=== PATIENT | female | born 1990 | race Caucasian/White ===

== ENCOUNTER 2016-12-08 13:03 | Emergency (ER) | payer MEDICAID ==
[~2016-12-08] VITALS: Ht 167.6 cm; Wt 88.5 kg
[2016-12-08 13:05] VITALS: BP_SYST 138
[2016-12-08 14:16] LABS: BASOPHILS # (AUTO) 0.3 K/uL (0.0-0.2); BASOPHILS % (AUTO) 3.1 % (0.0-2.0); EOSINOPHILS # (AUTO) 0.1 K/uL (0.0-0.4); HEMATOCRIT 44.2 % (36-48); HEMOGLOBIN 14.6 g/dL (12.0-16.0); LYMPHOCYTES # (AUTO) 2.2 K/uL (1.0-5.5); LYMPHOCYTES % (AUTO) 24.6 % (20.5-51.5); MEAN CORPUSCULAR HEMOGLOBIN 26 pg (27-31); MEAN CORPUSCULAR HGB CONC 33 % (32-36); MEAN CORPUSCULAR VOLUME 79 fL (79.0-98.0); MONOCYTES # (AUTO) 0.7 K/uL (0.0-1.0); MONOCYTES % (AUTO) 7.4 % (1.7-9.3); NEUTROPHILS # (AUTO) 5.8 K/uL (1.8-7.7); NEUTROPHILS % (AUTO) 63.9 % (40.0-70.0); PLATELET COUNT (AUTO) 399 K/uL (130-430); RED BLOOD CELL COUNT(AUTO) 5.59 MIL/uL (4.2-6.2); RED CELL DISTRIBUTION WIDTH 12.7 % (9.0-15.0); WHITE BLOOD COUNT (AUTO) 9.1 K/uL (4.8-10.8)
[2016-12-08 14:29] LABS: CALCIUM 8.7 mg/dL (8.4-11.0); CREATININE 0.82 mg/dL (0.55-1.30); POTASSIUM 3.8 mmol/L (3.5-5.1)
[2016-12-08 14:31] LABS: PROTHROMBIN TIME 10.3 SECS (9.5-12.5)
[2016-12-08] MEDS ORDERED: NACL 0.9% 1,000 ML IV ONE (15:00)
[2016-12-08] MEDS ORDERED: KETOROLAC TROMETHAMINE 30 MG VIAL IVP ONE (16:00)
[2016-12-08 16:14] LABS: BILIRUBIN,URINE NEGATIVE (NEGATIVE); BLOOD, URINE 3+ (NEGATIVE); CLARITY/URINE CLOUDY (CLEAR); COLOR,URINE RED (YELLOW); GLUCOSE,URINE 3+ (NEGATIVE); KETONES,URINE TRACE (NEGATIVE); NITRITE, URINE NEGATIVE (NEGATIVE); PH,URINE 6.5 (5.0-8.0); PROTEIN URINE 2+ (NEGATIVE); UROBILINOGEN,URINE 0.2 (0.2-1.0)
[2016-12-08 16:17] LABS: LEUKOCYTE ESTERASE ,URINE 2+ (NEGATIVE)
[2016-12-08 16:18] LABS: BACTERIA,URINE FEW /HPF (None Seen); MUCUS,URINE None Seen /LPF (None Seen); RBC,URINE >100 /HPF (0-3); WBC,URINE 20-50 /HPF (0-3)
[2016-12-08] MEDS ORDERED: MORPHINE 4 MG/ML INJ. SYRINGE IVP ONE (16:45)
[2016-12-08 18:54] VITALS: BP_SYST 136
== END 2016-12-08 18:54 | disposition home or self-care (01) ==
LOC: SED 13:03
DX: N93.8 Other specified abnormal uterine and vaginal bleeding (principal); N39.0 Urinary tract infection, site not specified
CPT/HCPCS: 36415; 76830; 76857; 80048; 81000; 81025; 85025; 85610; 85730; 86886; 86900; 86901; 87086; 96361; 96374; 96375; 99285; J1885; J2270; J7030

== ENCOUNTER 2018-04-27 14:17 | Inpatient (IN) | payer MEDICAID ==
[~2018-04-27] VITALS: Ht 167.6 cm; Wt 92.5 kg
[2018-04-27] MEDS ORDERED: NACL 0.9% 1,000 ML IV ONE (14:31)
[2018-04-27 14:40] VITALS: BP_SYST 149
[2018-04-27] MEDS ORDERED: ONDANSETRON HCL 4 MG/2 ML VIAL IVP ONE (14:45)
[2018-04-27] MEDS ORDERED: MORPHINE 4 MG/ML INJ. SYRINGE IVP ONE (14:45)
[2018-04-27 15:27] LABS: CREATININE 0.67 mg/dL (0.55-1.30); POTASSIUM 4.1 mmol/L (3.5-5.1)
[2018-04-27 15:29] LABS: PROTHROMBIN TIME 9.8 SECS (9.5-12.5)
[2018-04-27 15:34] LABS: HEMATOCRIT 36.4 % (36-48); HEMOGLOBIN 11.9 g/dL (12.0-16.0); RED BLOOD CELL COUNT(AUTO) 4.82 MIL/uL (4.2-6.2); WHITE BLOOD COUNT (AUTO) 18.1 K/uL (4.8-10.8)
[2018-04-27 15:35] LABS: EOSINOPHILS % (AUTO) 0.3 % (0.0-4.0); LYMPHOCYTES % (AUTO) 4.3 % (20.5-51.5); MEAN CORPUSCULAR HEMOGLOBIN 25 pg (27-31); MEAN CORPUSCULAR HGB CONC 33 % (32-36); MEAN CORPUSCULAR VOLUME 76 fL (79.0-98.0); MONOCYTES % (AUTO) 4.5 % (1.7-9.3); NEUTROPHILS % (AUTO) 90.5 % (40.0-70.0); PLATELET COUNT (AUTO) 590 K/uL (130-430); RED CELL DISTRIBUTION WIDTH 15.7 % (9.0-15.0)
[2018-04-27 15:36] LABS: BASOPHILS # (AUTO) 0.1 K/uL (0.0-0.2); BASOPHILS % (AUTO) 0.4 % (0.0-2.0); EOSINOPHILS # (AUTO) 0.1 K/uL (0.0-0.4); LYMPHOCYTES # (AUTO) 0.8 K/uL (1.0-5.5); MONOCYTES # (AUTO) 0.8 K/uL (0.0-1.0); NEUTROPHILS # (AUTO) 16.4 K/uL (1.8-7.7)
[2018-04-27 15:39] LABS: TOTAL BILIRUBIN 0.6 mg/dL (0.0-1.0)
[2018-04-27 16:09] LABS: BILIRUBIN,URINE NEGATIVE (NEGATIVE); BLOOD, URINE 3+ (NEGATIVE); CLARITY/URINE CLEAR (CLEAR); COLOR,URINE YELLOW (YELLOW); GLUCOSE,URINE NEGATIVE (NEGATIVE); KETONES,URINE NEGATIVE (NEGATIVE); LEUKOCYTE ESTERASE ,URINE 3+ (NEGATIVE); NITRITE, URINE POSITIVE (NEGATIVE); PROTEIN URINE 1+ (NEGATIVE); UROBILINOGEN,URINE 0.2 (0.2-1.0)
[2018-04-27] MEDS ORDERED: cefTRIAXone 1 GM IVPB PREMIX 50 ML IV ONE (16:15)
[2018-04-27 16:23] LABS: RBC,URINE >100 /HPF (0-3)
[2018-04-27 16:24] LABS: BACTERIA,URINE MODERATE /HPF (None Seen); WBC,URINE >100 /HPF (0-3)
[2018-04-27] MEDS ORDERED: NACL 0.9% 3,000 ML IV ONE (16:45)
[2018-04-27] MEDS ORDERED: ACETAMINOPHEN 500 MG TABLET PO ONE (16:45)
[2018-04-27 19:18] VITALS: BP_SYST 127
[2018-04-27] MEDS ORDERED: PIPERACILLIN/TAZOBACTAM 4.5 GM/VIAL (ZOSYN) IV ONE (20:40)
[2018-04-27] MEDS: PIPERACILLIN/TAZO 4.5GM/DEX-IS 100 ML IV SCH (22:00)
[2018-04-27] MEDS: NACL 0.9% 1,000 ML IV SCH (23:46)
[2018-04-28 00:48] VITALS: BP_SYST 124
[2018-04-28] MEDS: PIPERACILLIN/TAZO 4.5GM/DEX-IS 100 ML IV SCH ×2 (05:22→14:02)
[2018-04-28 08:03] VITALS: BP_SYST 123
[2018-04-28] MEDS: NACL 0.9% 1,000 ML IV SCH ×3 (08:18→23:58)
[2018-04-28] MEDS: ACETAMINOPHEN 325 MG TABLET PO PRN ×2 (09:06→20:37)
[2018-04-28 11:25] VITALS: BP_SYST 115
[2018-04-28 15:31] VITALS: BP_SYST 126
[2018-04-28] MEDS ORDERED: VANCOMYCIN HCL 1,000 MG in NS 250 ML IV SCH (16:00)
[2018-04-28] MEDS: AMPICILLIN SODIUM/SULBACTAM NA 3 GM in NS 100 ML IV SCH ×2 (17:29→23:57)
[2018-04-28 20:00] VITALS: BP_SYST 129
[2018-04-29 00:39] VITALS: BP_SYST 118
[2018-04-29] MEDS: AMPICILLIN SODIUM/SULBACTAM NA 3 GM in NS 100 ML IV SCH ×4 (05:26→23:30)
[2018-04-29 07:40] VITALS: BP_SYST 155
[2018-04-29 07:40] LABS: ALBUMIN 2.4 g/dL (3.4-4.8); CALCIUM 8.4 mg/dL (8.4-11.0); CREATININE 0.65 mg/dL (0.55-1.30); POTASSIUM 3.5 mmol/L (3.5-5.1); TOTAL BILIRUBIN 0.4 mg/dL (0.0-1.0)
[2018-04-29 08:06] LABS: HEMATOCRIT 35.4 % (36-48); HEMOGLOBIN 11.4 g/dL (12.0-16.0); RED BLOOD CELL COUNT(AUTO) 4.66 MIL/uL (4.2-6.2); WHITE BLOOD COUNT (AUTO) 7.2 K/uL (4.8-10.8)
[2018-04-29 08:07] LABS: BASOPHILS % (AUTO) 0.8 % (0.0-2.0); EOSINOPHILS % (AUTO) 1.3 % (0.0-4.0); LYMPHOCYTES # (AUTO) 1.9 K/uL (1.0-5.5); LYMPHOCYTES % (AUTO) 25.7 % (20.5-51.5); MEAN CORPUSCULAR HEMOGLOBIN 25 pg (27-31); MEAN CORPUSCULAR HGB CONC 32 % (32-36); MEAN CORPUSCULAR VOLUME 76 fL (79.0-98.0); MONOCYTES # (AUTO) 0.7 K/uL (0.0-1.0); MONOCYTES % (AUTO) 9.9 % (1.7-9.3); NEUTROPHILS # (AUTO) 4.5 K/uL (1.8-7.7); NEUTROPHILS % (AUTO) 62.3 % (40.0-70.0); PLATELET COUNT (AUTO) 493 K/uL (130-430); RED CELL DISTRIBUTION WIDTH 15.8 % (9.0-15.0)
[2018-04-29 08:08] LABS: BASOPHILS # (AUTO) 0.1 K/uL (0.0-0.2); EOSINOPHILS # (AUTO) 0.1 K/uL (0.0-0.4)
[2018-04-29] MEDS: NACL 0.9% 1,000 ML IV SCH (11:05)
[2018-04-29 11:30] VITALS: BP_SYST 128
[2018-04-29 15:37] VITALS: BP_SYST 142
[2018-04-29 19:55] VITALS: BP_SYST 147
[2018-04-30] VITALS: BP_SYST 151
[2018-04-30] MEDS: AMPICILLIN SODIUM/SULBACTAM NA 3 GM in NS 100 ML IV SCH ×2 (06:06→12:03)
[2018-04-30 08:00] VITALS: BP_SYST 155
[2018-04-30 12:39] VITALS: BP_SYST 144
[2018-04-30 16:40] VITALS: BP_SYST 137
[2018-04-30] MEDS ORDERED: AMOX-426 PO (17:06)
[2018-04-30] MEDS ORDERED: LACT1CAP62 PO (17:07)
[2018-04-30 17:13] VITALS: BP_SYST 137
== END 2018-04-30 17:45 | disposition home or self-care (01) | DRG 561 ==
LOC: SED 14:17 → STU 18:20 → SMU 04-28 09:54
PROVIDERS: ADMIT Internal Medicine; ATTEND Internal Medicine
DX: O85 Puerperal sepsis (principal); E44.0 Moderate protein-calorie malnutrition; O72.1 Other immediate postpartum hemorrhage; E66.9 Obesity, unspecified; O99.285 Endocrine, nutritional and metabolic diseases complicating the puerperium; E28.2 Polycystic ovarian syndrome; O90.81 Anemia of the puerperium; D64.9 Anemia, unspecified; O99.215 Obesity complicating the puerperium; O25.3 Malnutrition in the puerperium
CPT/HCPCS: 36415; 76700-TC; 76856-TC; 80053; 81000-TC; 82150-TC; 83605; 83690-TC; 84702-TC; 85025; 85610-TC; 85730-TC; 87040-TC; 87081; 87086; 87186-TC; 87210-TC; 93005; 96365; 96375; 99285; G0378; J0295; J0696; J2270; J2405; J2543; J3370; J7030; J7050

== ENCOUNTER 2018-08-19 13:31 | Emergency (ER) | payer MEDICAID ==
[~2018-08-19] VITALS: Ht 167.6 cm; Wt 86.2 kg
[~2018-08-19 13:31] MED LIST: AMOX-426 PO; LACT1CAP62 PO
[2018-08-19 13:35] VITALS: BP_SYST 156
--- NOTE | 2018-08-19 13:39 | NUR ---
Patient to ER bed 6 to gown for evaluation. Side rails up. Report given to Sarah LAMBERT.
--- NOTE | 2018-08-19 13:42 | NUR ---
Pt brought by self, A&Ox4, pt presents to ER with lower abdominal cramping , pt states she did a recent test and it was positive, pt denies N/V/D , denies vaginal bleeding , ambulatory.
--- NOTE | 2018-08-19 13:50 | NUR ---
ER at bedside examining patient.
[2018-08-19 14:19] LABS: BASOPHILS % (AUTO) 0.2 % (0.0-2.0); EOSINOPHILS # (AUTO) 0.1 K/uL (0.0-0.4); HEMATOCRIT 37.8 % (36-48); HEMOGLOBIN 12.2 g/dL (12.0-16.0); LYMPHOCYTES # (AUTO) 2.3 K/uL (1.0-5.5); LYMPHOCYTES % (AUTO) 23.9 % (20.5-51.5); MEAN CORPUSCULAR HEMOGLOBIN 24 pg (27-31); MEAN CORPUSCULAR HGB CONC 32 % (32-36); MEAN CORPUSCULAR VOLUME 74 fL (79.0-98.0); MONOCYTES # (AUTO) 0.8 K/uL (0.0-1.0); MONOCYTES % (AUTO) 8.4 % (1.7-9.3); NEUTROPHILS # (AUTO) 6.5 K/uL (1.8-7.7); NEUTROPHILS % (AUTO) 66.5 % (40.0-70.0); PLATELET COUNT (AUTO) 410 K/uL (130-430); RED BLOOD CELL COUNT(AUTO) 5.09 MIL/uL (4.2-6.2); RED CELL DISTRIBUTION WIDTH 17.1 % (9.0-15.0); WHITE BLOOD COUNT (AUTO) 9.8 K/uL (4.8-10.8)
--- NOTE | 2018-08-19 14:30 | NUR ---
Patient transported to radiology via WC, accompanied by RAD STAFF.
--- NOTE | 2018-08-19 14:55 | NUR ---
Returned from radiology, back to [facility].
[2018-08-19 15:20] VITALS: BP_SYST 148
--- NOTE | 2018-08-19 15:20 | NUR ---
Patient given written and verbal discharge instructions and verbalizes understanding. ER MD discussed with patient the results and treatment provided. Patient in stable condition. ID arm band removed. Rx of VITAMINS given. Patient educated on pain management and to follow up with PMD. Pain Scale 0. Opportunity for questions provided and answered. Medication side effect fact sheet provided.
== END 2018-08-19 15:20 | disposition home or self-care (01) ==
LOC: SED 13:31
DX: O26.891 Other specified pregnancy related conditions, first trimester (principal); R10.2 Pelvic and perineal pain; R03.0 Elevated blood-pressure reading, without diagnosis of hypertension; Z79.899 Other long term (current) drug therapy; Z3A.01 Less than 8 weeks gestation of pregnancy
CPT/HCPCS: 36415; 76801; 76817; 81002; 81025; 84702-TC; 85025; 99284

== ENCOUNTER 2018-09-03 16:21 | Emergency (ER) | payer MEDICAID ==
[~2018-09-03] VITALS: Ht 167.6 cm; Wt 86.2 kg
[2018-09-03 16:30] VITALS: BP_SYST 139
[2018-09-03 16:45] VITALS: BP_SYST 139
== END 2018-09-03 16:45 | disposition home or self-care (01) ==
LOC: SED 16:21
DX: T20.15XA Burn of first degree of scalp [any part], initial encounter (principal); T22.10XA Burn of first degree of shoulder and upper limb, except wrist and hand, unspecified site, initial encounter; T21.10XA Burn of first degree of trunk, unspecified site, initial encounter; T31.0 Burns involving less than 10% of body surface; L55.0 Sunburn of first degree; Z79.899 Other long term (current) drug therapy; X58.XXXA Exposure to other specified factors, initial encounter; Y93.89 Activity, other specified; Y92.89 Other specified places as the place of occurrence of the external cause; Y99.8 Other external cause status
CPT/HCPCS: 99283

== ENCOUNTER 2018-10-01 19:28 | Emergency (ER) | payer MEDICAID ==
[~2018-10-01] VITALS: Ht 167.6 cm; Wt 86.2 kg
[2018-10-01 19:39] VITALS: BP_SYST 123
--- NOTE | 2018-10-01 19:45 | NUR ---
Patient triaged and placed in waiting room. VSS and patient appears in no acute distress at this time. Accompanied by self, awaiting available bed, and MD notified of need for MSE.
--- NOTE | 2018-10-01 19:51 | NUR ---
Patient to ER bed 02 to gown for evaluation. Side rails up. Report given to Arcadio LAMBERT.
--- NOTE | 2018-10-01 19:51 | NUR ---
Pt 10 weeks 5 days , , AAOx4 ambulated into ED c/o vaginal spotting, white discharge, and dysuria starting today. Denies N/V/D/SOB/CP/abd pain. No other injuries/complaints per pt/noted. Will continue to monitor.
--- NOTE | 2018-10-01 20:05 | NUR ---
ER Dr. Infante at bedside examining patient.
[2018-10-01 20:19] LABS: BILIRUBIN,URINE NEGATIVE (NEGATIVE); BLOOD, URINE NEGATIVE (NEGATIVE); CLARITY/URINE CLEAR (CLEAR); COLOR,URINE YELLOW (YELLOW); GLUCOSE,URINE NEGATIVE (NEGATIVE); KETONES,URINE NEGATIVE (NEGATIVE); LEUKOCYTE ESTERASE ,URINE 1+ (NEGATIVE); NITRITE, URINE NEGATIVE (NEGATIVE); PROTEIN URINE NEGATIVE (NEGATIVE); UROBILINOGEN,URINE 0.2 (0.2-1.0)
[2018-10-01 20:49] LABS: BACTERIA,URINE RARE /HPF (None Seen); MUCUS,URINE 2+ /LPF (None Seen); RBC,URINE 0-3 /HPF (0-3)
[2018-10-01 21:02] LABS: BASOPHILS # (AUTO) 0.1 K/uL (0.0-0.2); BASOPHILS % (AUTO) 0.8 % (0.0-2.0); EOSINOPHILS # (AUTO) 0.1 K/uL (0.0-0.4); EOSINOPHILS % (AUTO) 0.9 % (0.0-4.0); HEMOGLOBIN 12.6 g/dL (12.0-16.0); LYMPHOCYTES # (AUTO) 3.1 K/uL (1.0-5.5); LYMPHOCYTES % (AUTO) 27.5 % (20.5-51.5); MEAN CORPUSCULAR HEMOGLOBIN 24 pg (27-31); MEAN CORPUSCULAR HGB CONC 32 % (32-36); MEAN CORPUSCULAR VOLUME 75 fL (79.0-98.0); MONOCYTES # (AUTO) 0.7 K/uL (0.0-1.0); MONOCYTES % (AUTO) 6.4 % (1.7-9.3); NEUTROPHILS # (AUTO) 7.4 K/uL (1.8-7.7); NEUTROPHILS % (AUTO) 64.4 % (40.0-70.0); PLATELET COUNT (AUTO) 419 K/uL (130-430); RED CELL DISTRIBUTION WIDTH 16.4 % (9.0-15.0); WHITE BLOOD COUNT (AUTO) 11.4 K/uL (4.8-10.8)
[2018-10-01 21:23] LABS: CALCIUM 9.7 mg/dL (8.4-11.0); CREATININE 0.52 mg/dL (0.55-1.30)
[2018-10-01 21:49] LABS: ALBUMIN 3.4 g/dL (3.4-4.8); TOTAL BILIRUBIN 0.2 mg/dL (0.0-1.0)
[2018-10-01 22:17] VITALS: BP_SYST 117
--- NOTE | 2018-10-01 22:17 | NUR ---
Patient given written and verbal discharge instructions and verbalizes understanding. ER MD discussed with patient the results and treatment provided. Patient in stable condition. ID arm band removed. Rx of Macrobid given. Patient educated on pain management and to follow up with PMD. Pain Scale 0. Opportunity for questions provided and answered. Medication side effect fact sheet provided.
== END 2018-10-01 22:17 | disposition home or self-care (01) ==
LOC: SED 19:28
DX: O20.0 Threatened abortion (principal); Z79.899 Other long term (current) drug therapy; Z3A.10 10 weeks gestation of pregnancy
CPT/HCPCS: 36415; 76805-TC; 80053; 81000-TC; 84702-TC; 85025; 86900; 86901; 87086; 99284

== ENCOUNTER 2019-04-23 07:55 | Emergency (ER) | payer MEDICAID ==
[~2019-04-23] VITALS: Ht 167.6 cm; Wt 94.3 kg
[2019-04-23 08:04] VITALS: BP_SYST 160
[2019-04-23] MEDS ORDERED: KETOROLAC TROMETHAMINE 60 MG/2 ML VIAL IM ONE (08:30)
[2019-04-23 08:43] LABS: BILIRUBIN,URINE NEGATIVE (NEGATIVE); BLOOD, URINE 3+ (NEGATIVE); CLARITY/URINE SL CLOUDY (CLEAR); COLOR,URINE YELLOW (YELLOW); GLUCOSE,URINE NEGATIVE (NEGATIVE); KETONES,URINE NEGATIVE (NEGATIVE); LEUKOCYTE ESTERASE ,URINE 1+ (NEGATIVE); NITRITE, URINE NEGATIVE (NEGATIVE); PROTEIN URINE TRACE (NEGATIVE); UROBILINOGEN,URINE 0.2 (0.2-1.0)
[2019-04-23 08:50] LABS: BASOPHILS # (AUTO) 0.1 K/uL (0.0-0.2); BASOPHILS % (AUTO) 0.7 % (0.0-2.0); EOSINOPHILS # (AUTO) 0.1 K/uL (0.0-0.4); EOSINOPHILS % (AUTO) 0.6 % (0.0-4.0); HEMATOCRIT 35.9 % (36-48); HEMOGLOBIN 11.6 g/dL (12.0-16.0); LYMPHOCYTES # (AUTO) 1.5 K/uL (1.0-5.5); LYMPHOCYTES % (AUTO) 13.1 % (20.5-51.5); MEAN CORPUSCULAR HEMOGLOBIN 24 pg (27-31); MEAN CORPUSCULAR HGB CONC 32 % (32-36); MEAN CORPUSCULAR VOLUME 73 fL (79.0-98.0); MONOCYTES # (AUTO) 0.7 K/uL (0.0-1.0); MONOCYTES % (AUTO) 5.8 % (1.7-9.3); NEUTROPHILS # (AUTO) 9.1 K/uL (1.8-7.7); NEUTROPHILS % (AUTO) 79.8 % (40.0-70.0); PLATELET COUNT (AUTO) 526 K/uL (130-430); RED BLOOD CELL COUNT(AUTO) 4.92 MIL/uL (4.2-6.2); RED CELL DISTRIBUTION WIDTH 16.7 % (9.0-15.0); WHITE BLOOD COUNT (AUTO) 11.4 K/uL (4.8-10.8)
[2019-04-23 08:59] LABS: BACTERIA,URINE FEW /HPF (None Seen); RBC,URINE 20-50 /HPF (0-3)
[2019-04-23 09:03] LABS: CALCIUM 8.7 mg/dL (8.4-11.0); CREATININE 0.76 mg/dL (0.55-1.30); POTASSIUM 4.2 mmol/L (3.5-5.1)
[2019-04-23 09:09] LABS: ALBUMIN 2.9 g/dL (3.4-4.8); TOTAL BILIRUBIN 0.5 mg/dL (0.0-1.0)
[2019-04-23] MEDS ORDERED: traMADol HCL HCL 50 MG TABLET (ULTRAM) PO ONE (11:00)
[2019-04-23 11:50] VITALS: BP_SYST 122
== END 2019-04-23 11:50 | disposition home or self-care (01) ==
LOC: SED 07:55
DX: N83.02 Follicular cyst of left ovary (principal); N39.0 Urinary tract infection, site not specified
CPT/HCPCS: 36415; 76856; 80053; 81000; 85025; 87086; 96372; 99284; J1885

== ENCOUNTER 2020-05-23 22:45 | Observation (INO) | payer MEDICAID ==
[~2020-05-23] VITALS: Ht 167.6 cm; Wt 97.5 kg
[2020-05-24] MEDS ORDERED: ACETAMINOPHEN 325 MG TABLET PO PRN (00:15)
[2020-05-24] MEDS ORDERED: ACETAMINOPHEN 325 MG TABLET ONE (00:17)
== END 2020-05-24 00:50 | disposition home or self-care (01) ==
LOC: SPU 22:45
PROVIDERS: ADMIT Obstetrics & Gynecology; ATTEND Obstetrics & Gynecology
DX: O26.892 Other specified pregnancy related conditions, second trimester (principal); R10.30 Lower abdominal pain, unspecified; Z3A.21 21 weeks gestation of pregnancy
CPT/HCPCS: 81002; G0378

== ENCOUNTER 2020-06-10 22:37 | Observation (INO) | payer MEDICAID | END 2020-06-10 23:55 | disposition home or self-care (01) | LOC: INTOOBSV 22:37 → SPU 22:37 | PROVIDERS: ADMIT Obstetrics & Gynecology; ATTEND Obstetrics & Gynecology | DX: O24.414 Gestational diabetes mellitus in pregnancy, insulin controlled (principal); O34.62 Maternal care for abnormality of vagina, second trimester; N89.8 Other specified noninflammatory disorders of vagina; Z3A.24 24 weeks gestation of pregnancy; Z79.4 Long term (current) use of insulin | CPT/HCPCS: G0378 ==

== ENCOUNTER 2020-06-28 18:33 | Emergency (ER) | payer MEDICAID ==
[~2020-06-28] VITALS: Ht 167.6 cm; Wt 98.4 kg
[2020-06-28 18:45] VITALS: BP_SYST 132
[2020-06-28] MEDS ORDERED: NACL 0.9% 1,000 ML IV ONE (19:30)
[2020-06-28 19:49] LABS: BASOPHILS # (AUTO) 0.4 K/uL (0.0-0.2); BASOPHILS % (AUTO) 2.8 % (0.0-2.0); EOSINOPHILS # (AUTO) 0.2 K/uL (0.0-0.4); EOSINOPHILS % (AUTO) 1.4 % (0.0-4.0); HEMATOCRIT 35.8 % (36-48); HEMOGLOBIN 12.1 g/dL (12.0-16.0); LYMPHOCYTES # (AUTO) 1.4 K/uL (1.0-5.5); LYMPHOCYTES % (AUTO) 11.2 % (20.5-51.5); MEAN CORPUSCULAR HEMOGLOBIN 25 pg (27-31); MEAN CORPUSCULAR HGB CONC 34 % (32-36); MEAN CORPUSCULAR VOLUME 76 fL (79.0-98.0); MONOCYTES # (AUTO) 0.9 K/uL (0.0-1.0); MONOCYTES % (AUTO) 6.9 % (1.7-9.3); NEUTROPHILS # (AUTO) 9.9 K/uL (1.8-7.7); NEUTROPHILS % (AUTO) 77.7 % (40.0-70.0); PLATELET COUNT (AUTO) 399 K/uL (130-430); RED BLOOD CELL COUNT(AUTO) 4.75 MIL/uL (4.2-6.2); WHITE BLOOD COUNT (AUTO) 12.7 K/uL (4.8-10.8)
[2020-06-28 20:04] LABS: CREATININE 0.69 mg/dL (0.55-1.30); POTASSIUM 3.7 mmol/L (3.5-5.1)
[2020-06-28 20:05] LABS: BILIRUBIN,URINE NEGATIVE (NEGATIVE); BLOOD, URINE NEGATIVE (NEGATIVE); CLARITY/URINE CLEAR (CLEAR); GLUCOSE,URINE NEGATIVE (NEGATIVE); KETONES,URINE NEGATIVE (NEGATIVE); LEUKOCYTE ESTERASE ,URINE NEGATIVE (NEGATIVE); NITRITE, URINE NEGATIVE (NEGATIVE); PH,URINE 6.5 (5.0-8.0); PROTEIN URINE NEGATIVE (NEGATIVE); UROBILINOGEN,URINE 0.2 (0.2-1.0)
[2020-06-28 20:09] LABS: ALBUMIN 2.9 g/dL (3.4-4.8); PHOSPHORUS 3.9 mg/dL (2.7-4.5)
[2020-06-28 20:13] LABS: COLOR,URINE STRAW (YELLOW)
[2020-06-28 20:22] LABS: CALCIUM 8.7 mg/dL (8.4-11.0); TOTAL BILIRUBIN 0.3 mg/dL (0.0-1.0)
[2020-06-28 21:06] VITALS: BP_SYST 121
== END 2020-06-28 21:06 | disposition home or self-care (01) ==
LOC: SED 18:33
DX: O26.892 Other specified pregnancy related conditions, second trimester (principal); R25.2 Cramp and spasm; I10 Essential (primary) hypertension; E11.9 Type 2 diabetes mellitus without complications; Z3A.26 26 weeks gestation of pregnancy
CPT/HCPCS: 36415; 80053; 81003; 83735; 84100; 85025; 96360; 99284; J7030

== ENCOUNTER 2020-09-01 21:45 | Observation (INO) | payer MEDICAID | END 2020-09-02 00:10 | disposition home or self-care (01) | LOC: SPU 21:55 | PROVIDERS: ADMIT Obstetrics & Gynecology; ATTEND Obstetrics & Gynecology | DX: O26.893 Other specified pregnancy related conditions, third trimester (principal); R55 Syncope and collapse; R42 Dizziness and giddiness; Z3A.36 36 weeks gestation of pregnancy | CPT/HCPCS: 82962; G0378 ==

== ENCOUNTER 2020-09-16 22:13 | Observation (INO) | payer MEDICAID | END 2020-09-16 23:48 | disposition home or self-care (01) | LOC: SPU 22:13 | PROVIDERS: ADMIT Obstetrics & Gynecology; ATTEND Obstetrics & Gynecology | DX: O62.9 Abnormality of forces of labor, unspecified (principal); Z3A.38 38 weeks gestation of pregnancy; Z79.899 Other long term (current) drug therapy | CPT/HCPCS: 59025; 81002; 82962; G0378 ==

== ENCOUNTER 2020-09-17 23:10 | Observation (INO) | payer MEDICAID ==
[~2020-09-17] VITALS: Ht 167.6 cm; Wt 101.6 kg
== END 2020-09-18 01:35 | disposition home or self-care (01) ==
LOC: SPU 23:10
PROVIDERS: ADMIT Obstetrics & Gynecology; ATTEND Obstetrics & Gynecology
DX: O62.9 Abnormality of forces of labor, unspecified (principal); Z3A.38 38 weeks gestation of pregnancy
CPT/HCPCS: 81002; 82962; G0378 ×2

== ENCOUNTER 2020-09-20 09:16 | Inpatient (IN) | payer MEDICAID, SELFPAY ==
[~2020-09-20] VITALS: Ht 167.6 cm; Wt 101.6 kg
[2020-09-20] MEDS ORDERED: AMPICILLIN SODIUM 2 GM in NS 100 ML IV ONE (10:45)
[2020-09-20] MEDS ORDERED: LR 1,000 ML IV SCH (10:45)
[2020-09-20] MEDS ORDERED: TERBUTALINE SULFATE 1 MG/ML VIAL SUBCUT ONE (10:45)
[2020-09-20] MEDS ORDERED: OXYTOCIN/0.9 % SODIUM CHLORIDE 1,000 ML IV SCH (10:45)
[2020-09-20] MEDS ORDERED: DINOPROSTONE 10 MG SUPP VG ONE (10:45)
[2020-09-20] MEDS ORDERED: NALBUPHINE HCL 10 MG/ML AMP IVP PRN (10:45)
[2020-09-20] MEDS ORDERED: AMPICILLIN SODIUM 2 GM VIAL ONE (10:52)
[2020-09-20 11:14] LABS: BASOPHILS # (AUTO) 0.1 K/uL (0.0-0.2); BASOPHILS % (AUTO) 0.9 % (0.0-2.0); EOSINOPHILS # (AUTO) 0.1 K/uL (0.0-0.4); EOSINOPHILS % (AUTO) 0.8 % (0.0-4.0); HEMATOCRIT 35.6 % (36-48); LYMPHOCYTES # (AUTO) 2.3 K/uL (1.0-5.5); LYMPHOCYTES % (AUTO) 21.9 % (20.5-51.5); MEAN CORPUSCULAR HEMOGLOBIN 25 pg (27-31); MEAN CORPUSCULAR HGB CONC 34 % (32-36); MEAN CORPUSCULAR VOLUME 75 fL (79.0-98.0); MONOCYTES # (AUTO) 0.7 K/uL (0.0-1.0); MONOCYTES % (AUTO) 7.1 % (1.7-9.3); NEUTROPHILS # (AUTO) 7.3 K/uL (1.8-7.7); NEUTROPHILS % (AUTO) 69.3 % (40.0-70.0); PLATELET COUNT (AUTO) 312 K/uL (130-430); RED BLOOD CELL COUNT(AUTO) 4.78 MIL/uL (4.2-6.2); RED CELL DISTRIBUTION WIDTH 15.7 % (9.0-15.0); WHITE BLOOD COUNT (AUTO) 10.5 K/uL (4.8-10.8)
[2020-09-20 12:14] VITALS: BP_SYST 133
[2020-09-20] MEDS ORDERED: ROPIVACAINE HCL/PF 0.2% 200 ML ONE (13:38)
[2020-09-20] MEDS ORDERED: fentaNYL CITRATE/PF 100 MCG/2 ML AMP ONE (13:38)
[2020-09-20] MEDS ORDERED: FENT2mCg/mL-ROPIVA0.2%/NS EPID 200 ML EP SCH (13:38)
[2020-09-20] MEDS: AMPICILLIN SODIUM 1 GM in NS 50 ML IV SCH ×3 (14:42→22:45)
[2020-09-20] MEDS ORDERED: D5LR 1,000 ML IV SCH (15:45)
[2020-09-21] MEDS ORDERED: ANUSOL 1 EA SUPP.RECT (PREPARATION H) RC PRN (03:00)
[2020-09-21] MEDS ORDERED: OXYCODONE/ACETAMINOPHEN 5-325 TABLET PO PRN ×2 (03:00)
[2020-09-21] MEDS ORDERED: WITCH HAZEL LEAF 1 MED.PAD MED.PAD TP PRN (03:00)
[2020-09-21] MEDS ORDERED: DERMOPLAST SPRAY TP PRN (03:00)
[2020-09-21] MEDS ORDERED: LANOLIN 7 GM OINT. TP PRN (03:00)
[2020-09-21] MEDS ORDERED: OXYTOCIN/0.9 % SODIUM CHLORIDE 1,000 ML IV SCH (03:00)
[2020-09-21] MEDS ORDERED: HYDROCORTISONE 0.5% CREAM 28.4 GM CREAM.GM. TP PRN (03:00)
[2020-09-21] MEDS ORDERED: OXYTOCIN/0.9 % SODIUM CHLORIDE 1,000 ML IV ONE (03:00)
[2020-09-21] MEDS: IBUPROFEN 800 MG TABLET PO PRN ×3 (07:17→18:24)
[2020-09-21] MEDS: DOCUSATE SODIUM 100 MG CAPSULE PO SCH (12:43)
[2020-09-21] MEDS ORDERED: FENT2mCg/mL-ROPIVA0.2%/NS EPID 150 ML EP SCH (17:00)
[2020-09-21] MEDS ORDERED: TEMAZEPAM 15 MG CAPSULE PO PRN (21:00)
[2020-09-21] MEDS ORDERED: SENNOSIDES/DOCUSATE SODIUM 1 TAB TABLET(SENOKOT-S) PO SCH (21:00)
[2020-09-22] MEDS: IBUPROFEN 800 MG TABLET PO PRN ×2 (00:03→11:45)
[2020-09-22 07:11] LABS: BASOPHILS # (AUTO) 0.1 K/uL (0.0-0.2); BASOPHILS % (AUTO) 0.6 % (0.0-2.0); EOSINOPHILS # (AUTO) 0.2 K/uL (0.0-0.4); EOSINOPHILS % (AUTO) 1.6 % (0.0-4.0); HEMATOCRIT 27.7 % (36-48); HEMOGLOBIN 9.3 g/dL (12.0-16.0); LYMPHOCYTES # (AUTO) 3.7 K/uL (1.0-5.5); LYMPHOCYTES % (AUTO) 32.4 % (20.5-51.5); MEAN CORPUSCULAR HEMOGLOBIN 25 pg (27-31); MEAN CORPUSCULAR HGB CONC 33 % (32-36); MEAN CORPUSCULAR VOLUME 75 fL (79.0-98.0); MONOCYTES # (AUTO) 0.9 K/uL (0.0-1.0); MONOCYTES % (AUTO) 8.1 % (1.7-9.3); NEUTROPHILS # (AUTO) 6.5 K/uL (1.8-7.7); NEUTROPHILS % (AUTO) 57.3 % (40.0-70.0); PLATELET COUNT (AUTO) 292 K/uL (130-430); RED CELL DISTRIBUTION WIDTH 15.6 % (9.0-15.0); WHITE BLOOD COUNT (AUTO) 11.3 K/uL (4.8-10.8)
[2020-09-22] MEDS: DOCUSATE SODIUM 100 MG CAPSULE PO SCH (10:38)
[2020-09-22] MEDS ORDERED: DOCUSATE SODIUM 100 MG CAPSULE PO ONE (10:41)
== END 2020-09-22 15:50 | disposition home or self-care (01) | DRG 560 ==
LOC: SPU 09:16
PROVIDERS: ADMIT Obstetrics & Gynecology; ATTEND Obstetrics & Gynecology
PROC: 10E0XZZ Delivery of Products of Conception, External Approach (ICD-10-PCS; principal; 2020-09-21)
PROC: 3E0R3BZ Introduction of Anesthetic Agent into Spinal Canal, Percutaneous Approach (ICD-10-PCS; 2020-09-21)
PROC: 00HU33Z Insertion of Infusion Device into Spinal Canal, Percutaneous Approach (ICD-10-PCS; 2020-09-21)
DX: O24.12 Pre-existing type 2 diabetes mellitus, in childbirth (principal); Z37.0 Single live birth; O10.92 Unspecified pre-existing hypertension complicating childbirth; E11.9 Type 2 diabetes mellitus without complications; Z20.822 Contact with and (suspected) exposure to COVID-19; Z3A.38 38 weeks gestation of pregnancy
CPT/HCPCS: 36415; 82947; 82962; 85025; 86592; 86886; 86900; 86901; 94760; J0290; J2590; J3010

== ENCOUNTER → 2020-09-30 | Emergency (ER) | payer MEDICAID, SELFPAY ==
--- NOTE | 2020-10-01 01:16 | NUR ---
Patient left without being seen.
== END | disposition left against medical advice (07) ==
LOC: SED 17:41
DX: R42 Dizziness and giddiness (principal); Z53.21 Procedure and treatment not carried out due to patient leaving prior to being seen by health care provider

== ENCOUNTER 2021-08-02 22:34 | Emergency (ER) | payer MEDICAID ==
[~2021-08-02] VITALS: Ht 167.6 cm; Wt 95.3 kg
[2021-08-02 22:50] VITALS: BP_SYST 142
--- NOTE | 2021-08-02 22:50 | NUR ---
Patient triaged and placed in waiting room. VSS and patient appears in no acute distress at this time. Accompanied by FAM MEMBER, awaiting available bed, and MD notified of need for MSE.
--- NOTE | 2021-08-02 23:55 | NUR ---
Patient to ER bed 7 to gown for evaluation. Side rails up. Report given to GINGER LAMBERT.
--- NOTE | 2021-08-03 00:28 | NUR ---
PT PRESENTED TO ER WITH COMPLAINT OF DIZENESS FOR THE PAST 3 DAYS, PT STATES SHE EXPERIENCES NAUSEA IMMEDIETLY AFTER EATING. DENIES ANY CHEST, HEAD OR ABDOMINAL PAIN. PT DOES HAVE COMPLAINT OF PAIN ON 5/10 OF RIGHT ARM. PT DOES STATE THAT SHE DOES HAVE A HISTORY OF VERTIGO, BUT STATES THAT THE FEELING SHE IS EXPERIENCING IS DIFFERENT THAN VERTIGO. LAST VERTIGO EPISODE WAS 4+YRS AGO
--- NOTE | 2021-08-03 00:29 | NUR ---
ULTRASOUND AT PT BEDSIDE
[2021-08-03 00:37] LABS: BASOPHILS # (AUTO) 0.1 K/uL (0.0-0.2); BASOPHILS % (AUTO) 0.8 % (0.0-2.0); EOSINOPHILS # (AUTO) 0.1 K/uL (0.0-0.4); EOSINOPHILS % (AUTO) 0.6 % (0.0-4.0); HEMATOCRIT 37.2 % (36-48); HEMOGLOBIN 12.6 g/dL (12.0-16.0); LYMPHOCYTES # (AUTO) 2.1 K/uL (1.0-5.5); LYMPHOCYTES % (AUTO) 22.8 % (20.5-51.5); MEAN CORPUSCULAR HEMOGLOBIN 26 pg (27-31); MEAN CORPUSCULAR HGB CONC 34 % (32-36); MEAN CORPUSCULAR VOLUME 76 fL (79.0-98.0); MONOCYTES # (AUTO) 0.5 K/uL (0.0-1.0); MONOCYTES % (AUTO) 5.7 % (1.7-9.3); NEUTROPHILS # (AUTO) 6.5 K/uL (1.8-7.7); NEUTROPHILS % (AUTO) 70.1 % (40.0-70.0); PLATELET COUNT (AUTO) 343 K/uL (130-430); RED CELL DISTRIBUTION WIDTH 13.4 % (9.0-15.0); WHITE BLOOD COUNT (AUTO) 9.3 K/uL (4.8-10.8)
[2021-08-03 00:52] LABS: CALCIUM 8.6 mg/dL (8.4-11.0); CREATININE 0.7 mg/dL (0.55-1.30); POTASSIUM 3.5 mmol/L (3.5-5.1)
[2021-08-03 00:58] LABS: BILIRUBIN,URINE NEGATIVE (NEGATIVE); BLOOD, URINE NEGATIVE (NEGATIVE); CLARITY/URINE CLEAR (CLEAR); COLOR,URINE YELLOW (YELLOW); GLUCOSE,URINE NEGATIVE (NEGATIVE); KETONES,URINE NEGATIVE (NEGATIVE); LEUKOCYTE ESTERASE ,URINE NEGATIVE (NEGATIVE); NITRITE, URINE NEGATIVE (NEGATIVE); PH,URINE 5.5 (5.0-8.0); PROTEIN URINE NEGATIVE (NEGATIVE); UROBILINOGEN,URINE 0.2 (0.2-1.0)
[2021-08-03 01:18] LABS: TOTAL BILIRUBIN 0.3 mg/dL (0.0-1.0)
--- NOTE | 2021-08-03 02:13 | NUR ---
Patient given written and verbal discharge instructions and verbalizes understanding. ER DR JAYLENE GRANT discussed with patient the results and treatment provided. Patient in stable condition. Rx of NO RX given. Patient educated on pain management and to follow up with PMD. Opportunity for questions provided and answered. Medication side effect fact sheet provided.
== END 2021-08-03 02:12 | disposition home or self-care (01) ==
LOC: SED 22:34
DX: O26.892 Other specified pregnancy related conditions, second trimester (principal); E86.0 Dehydration; R42 Dizziness and giddiness; Z3A.15 15 weeks gestation of pregnancy
CPT/HCPCS: 36415; 76805-TC; 80053; 81003; 84702; 85025; 99284

== ENCOUNTER 2021-08-24 21:04 | Emergency (ER) | payer MEDICAID | END 2021-08-24 22:13 | disposition left against medical advice (07) | LOC: SED 21:04 | DX: O26.892 Other specified pregnancy related conditions, second trimester (principal); Z3A.19 19 weeks gestation of pregnancy; Z53.21 Procedure and treatment not carried out due to patient leaving prior to being seen by health care provider ==

== ENCOUNTER 2021-12-26 08:56 | Observation (INO) | payer MEDICAID ==
[~2021-12-26] VITALS: Ht 167.6 cm; Wt 98.9 kg
[2021-12-26 08:56] VITALS: BP_SYST 138
[2021-12-26] MEDS ORDERED: TERBUTALINE SULFATE 1 MG/ML VIAL SUBCUT PRN (09:15)
[2021-12-26 09:57] LABS: BILIRUBIN,URINE NEGATIVE (NEGATIVE); BLOOD, URINE NEGATIVE (NEGATIVE); CLARITY/URINE CLEAR (CLEAR); COLOR,URINE YELLOW (YELLOW); GLUCOSE,URINE NEGATIVE (NEGATIVE); KETONES,URINE NEGATIVE (NEGATIVE); LEUKOCYTE ESTERASE ,URINE NEGATIVE (NEGATIVE); NITRITE, URINE NEGATIVE (NEGATIVE); PH,URINE 6.5 (5.0-8.0); PROTEIN URINE NEGATIVE (NEGATIVE); UROBILINOGEN,URINE 0.2 (0.2-1.0)
[2021-12-26 10:08] LABS: BARBITURATE, URINE NEGATIVE (NEG <=200); BENZODIAZEPINE, URINE NEGATIVE (NEG <=150); CANNABINOID, URINE NEGATIVE (NEG <=50); COCAINE, URINE NEGATIVE (NEG <=150); METHAMPHETAMINES SCREEN,URINE NEGATIVE (NEG <=500); OPIATE, URINE NEGATIVE (NEG <=100); PHENCYCLIDINE SCREEN,URINE NEGATIVE (NEG <=25); UR TRICYCLIC ANTIDEPRESSANTS NEGATIVE (NEG <=300); URINE AMPHETAMINE NEGATIVE (NEG <=500); URINE METHADONE NEGATIVE (NEG <=200); URINE OXYCODONE SCREEN NEGATIVE (NEG <=100); URINE PROPOXYPHENE SCREEN NEGATIVE (NEG <=300)
[2021-12-26 11:01] VITALS: BP_SYST 128
[2021-12-26 12:30] VITALS: BP_SYST 124
== END 2021-12-26 12:30 | disposition home or self-care (01) ==
LOC: SPU 09:00 → SED 09:01 → SPU 09:03 → SED 10:51 → EDSTATUS 12:43
PROVIDERS: ADMIT Obstetrics & Gynecology; ATTEND Obstetrics & Gynecology
DX: O26.893 Other specified pregnancy related conditions, third trimester (principal); L29.2 Pruritus vulvae; Z3A.37 37 weeks gestation of pregnancy
CPT/HCPCS: 80307; 81003; 99284; G0378

== ENCOUNTER 2022-10-04 21:53 | Emergency (ER) | payer MEDICAID ==
[~2022-10-04] VITALS: Ht 167.6 cm; Wt 88.5 kg
[2022-10-04 22:03] VITALS: BP_SYST 222; PULSE 110; RESP 18; TEMP 98.1; O2SAT 100
[2022-10-04 22:44] LABS: BILIRUBIN,URINE NEGATIVE (NEGATIVE); BLOOD, URINE NEGATIVE (NEGATIVE); GLUCOSE,URINE NEGATIVE (NEGATIVE); KETONES,URINE 1+ (NEGATIVE); NITRITE, URINE NEGATIVE (NEGATIVE); PROTEIN URINE NEGATIVE (NEGATIVE); UROBILINOGEN,URINE 0.2 (0.2-1.0)
[2022-10-04 22:57] LABS: BASOPHILS # (AUTO) 0.1 K/uL (0.0-0.2); BASOPHILS % (AUTO) 0.6 % (0.0-2.0); EOSINOPHILS # (AUTO) 0.1 K/uL (0.0-0.4); EOSINOPHILS % (AUTO) 0.6 % (0.0-4.0); HEMATOCRIT 38.2 % (36-48); HEMOGLOBIN 12.5 g/dL (12.0-16.0); LYMPHOCYTES # (AUTO) 2.5 K/uL (1.0-5.5); LYMPHOCYTES % (AUTO) 22.1 % (20.5-51.5); MEAN CORPUSCULAR HEMOGLOBIN 25 pg (27-31); MEAN CORPUSCULAR HGB CONC 33 % (32-36); MEAN CORPUSCULAR VOLUME 76 fL (79.0-98.0); MONOCYTES # (AUTO) 0.7 K/uL (0.0-1.0); MONOCYTES % (AUTO) 6.4 % (1.7-9.3); NEUTROPHILS # (AUTO) 7.8 K/uL (1.8-7.7); NEUTROPHILS % (AUTO) 70.3 % (40.0-70.0); PLATELET COUNT (AUTO) 373 K/uL (130-430); RED BLOOD CELL COUNT(AUTO) 5.04 MIL/uL (4.2-6.2); RED CELL DISTRIBUTION WIDTH 15.3 % (9.0-15.0); WHITE BLOOD COUNT (AUTO) 11.1 K/uL (4.8-10.8)
[2022-10-04 23:13] LABS: CALCIUM 8.8 mg/dL (8.4-11.0); CREATININE 0.5 mg/dL (0.55-1.30); POTASSIUM 3.8 mmol/L (3.5-5.1)
[2022-10-04 23:13] LABS: COLOR,URINE YELLOW (YELLOW)
[2022-10-04 23:14] LABS: CLARITY/URINE SLIGHTLY CLOUDY (CLEAR); LEUKOCYTE ESTERASE ,URINE TRACE (NEGATIVE)
[2022-10-04 23:16] LABS: BACTERIA,URINE MODERATE /HPF (None Seen); RBC,URINE 0-3 /HPF (0-3)
[2022-10-04 23:33] LABS: ALBUMIN 3.1 g/dL (3.4-4.8); PHOSPHORUS 3.8 mg/dL (2.7-4.5); TOTAL BILIRUBIN 0.2 mg/dL (0.0-1.0); TOTAL PROTEIN, SERUM 7.3 g/dL (6.4-8.3)
[2022-10-05] MEDS ORDERED: ACETAMINOPHEN 500 MG TABLET PO ONE
[2022-10-05] MEDS ORDERED: cephALEXin 500 MG CAPSULE PO ONE
[2022-10-05] MEDS ORDERED: LABETALOL HCL 20 MG/4 ML CARTRIDGE IVP ONE (00:15)
[2022-10-05] MEDS ORDERED: PNV1CAPS PO (00:28)
[2022-10-05] MEDS ORDERED: CEPH-548 PO (00:28)
[2022-10-05 01:37] VITALS: BP_SYST 153; PULSE 92; RESP 16; TEMP 98.1; O2SAT 96
== END 2022-10-05 00:58 | disposition home or self-care (01) ==
LOC: SED 21:53
DX: O00.01 Abdominal pregnancy with intrauterine pregnancy (principal); O23.42 Unspecified infection of urinary tract in pregnancy, second trimester; N39.0 Urinary tract infection, site not specified; Z3A.16 16 weeks gestation of pregnancy; E11.9 Type 2 diabetes mellitus without complications; I10 Essential (primary) hypertension; Z79.899 Other long term (current) drug therapy
CPT/HCPCS: 36415; 76801; 76817; 80053; 81000; 81025; 83690; 84100; 84702; 85025; 87086; 96374; 99285

== ENCOUNTER 2023-02-26 20:23 | Emergency (ER) | payer MEDICAID ==
[~2023-02-26] VITALS: Ht 167.6 cm; Wt 97.5 kg
[~2023-02-26 20:23] MED LIST changes: -AMOX-426 PO; +CEPH-548 PO; -LACT1CAP62 PO; +PNV1CAPS PO
[2023-02-26 20:50] VITALS: BP_SYST 174; PULSE 69; RESP 16; TEMP 97.3; O2SAT 100
[2023-02-26] MEDS ORDERED: NIFEdipine 30 MG TAB.ER.24 PO ONE (22:00)
== END 2023-02-26 22:10 | disposition left against medical advice (07) ==
LOC: SED 20:23
DX: K64.4 Residual hemorrhoidal skin tags (principal); E11.9 Type 2 diabetes mellitus without complications; I10 Essential (primary) hypertension; Z79.899 Other long term (current) drug therapy
CPT/HCPCS: 99281

== ENCOUNTER 2023-04-02 15:45 | Emergency (ER) | payer MEDICAID ==
[~2023-04-02] VITALS: Ht 167.6 cm; Wt 90.7 kg
[2023-04-02 16:24] VITALS: BP_SYST 180; PULSE 85; RESP 18; TEMP 97.9; O2SAT 100
[2023-04-02 17:19] LABS: BILIRUBIN,URINE NEGATIVE (NEGATIVE); BLOOD, URINE 3+ (NEGATIVE); CLARITY/URINE CLEAR (CLEAR); COLOR,URINE YELLOW (YELLOW); GLUCOSE,URINE NEGATIVE (NEGATIVE); KETONES,URINE NEGATIVE (NEGATIVE); LEUKOCYTE ESTERASE ,URINE NEGATIVE (NEGATIVE); NITRITE, URINE NEGATIVE (NEGATIVE); PH,URINE 7.5 (5.0-8.0); PROTEIN URINE NEGATIVE (NEGATIVE); UROBILINOGEN,URINE 0.2 (0.2-1.0)
[2023-04-02 17:24] LABS: BACTERIA,URINE FEW /HPF (None Seen); MUCUS,URINE None Seen /LPF (None Seen); RBC,URINE 20-50 /HPF (0-3); WBC,URINE 0-3 /HPF (0-3)
[2023-04-02 17:48] LABS: BASOPHILS # (AUTO) 0.1 K/uL (0.0-0.2); BASOPHILS % (AUTO) 0.8 % (0.0-2.0); EOSINOPHILS # (AUTO) 0.1 K/uL (0.0-0.4); EOSINOPHILS % (AUTO) 1.4 % (0.0-4.0); HEMATOCRIT 39.7 % (36-48); HEMOGLOBIN 13.3 g/dL (12.0-16.0); LYMPHOCYTES # (AUTO) 1.7 K/uL (1.0-5.5); LYMPHOCYTES % (AUTO) 25.4 % (20.5-51.5); MEAN CORPUSCULAR HEMOGLOBIN 26 pg (27-31); MEAN CORPUSCULAR HGB CONC 34 % (32-36); MEAN CORPUSCULAR VOLUME 77 fL (79.0-98.0); MONOCYTES # (AUTO) 0.5 K/uL (0.0-1.0); MONOCYTES % (AUTO) 7.9 % (1.7-9.3); NEUTROPHILS # (AUTO) 4.2 K/uL (1.8-7.7); NEUTROPHILS % (AUTO) 64.5 % (40.0-70.0); PLATELET COUNT (AUTO) 346 K/uL (130-430); RED BLOOD CELL COUNT(AUTO) 5.17 MIL/uL (4.2-6.2); RED CELL DISTRIBUTION WIDTH 16.8 % (9.0-15.0); WHITE BLOOD COUNT (AUTO) 6.6 K/uL (4.8-10.8)
[2023-04-02 17:51] LABS: CALCIUM 9.4 mg/dL (8.4-11.0); CREATININE 0.67 mg/dL (0.55-1.30); POTASSIUM 4.1 mmol/L (3.5-5.1)
[2023-04-02 17:54] LABS: ALBUMIN 3.8 g/dL (3.4-4.8); BILIRUBIN,DIRECT 0.1 mg/dL (0.0-0.3); TOTAL BILIRUBIN 0.5 mg/dL (0.0-1.0); TOTAL PROTEIN, SERUM 7.9 g/dL (6.4-8.3)
[2023-04-02 17:55] LABS: SERUM HCG (QUALITATIVE) NEGATIVE (NEGATIVE)
[2023-04-02] MEDS: hydrALAZINE HCL 20 MG/ML VIAL IVP ONE (18:47)
[2023-04-02] MEDS: LABETALOL HCL 20 MG/4 ML CARTRIDGE IVP ONE (19:56)
[2023-04-02] MEDS ORDERED: LABE100T8 PO (19:59)
[2023-04-02 20:59] VITALS: BP_SYST 148; PULSE 101; RESP 16; TEMP 98.1; O2SAT 97
== END 2023-04-02 20:58 | disposition home or self-care (01) ==
LOC: SED 15:45
DX: O16.5 Unspecified maternal hypertension, complicating the puerperium (principal); E11.9 Type 2 diabetes mellitus without complications; Z79.899 Other long term (current) drug therapy
CPT/HCPCS: 99284; 96374; 96375; 80076; 80048; 81001; 84703; 83690; 83735; 85025; 85379; 36415; 93005; 81000; 81015; J0360